=== PATIENT | male | born 1980 | race Caucasian/White ===

== ENCOUNTER 2017-07-14 23:41 | Emergency (ER) | payer SELFPAY ==
[2017-07-15 01:34] VITALS: BMI 27.3
[2017-07-15 01:43] VITALS: RESP 18; TEMP 97.7; O2SAT 100
[2017-07-15] MEDS ORDERED: Sodium Chloride 0.9% 2,000 ML IV STA (01:52)
[2017-07-15] MEDS ORDERED: HYDROmorphone 0.5 mg/0.5 ml ISec IVP STA (01:52)
--- NOTE | 2017-07-15 01:57 | ED PDOC ---
Arrival/HPI - General Chief Complaint: Abdominal Pain Time Seen by Provider: 07/15/17 01:48 Historian: Patient - History of Present Illness Narrative History of Present Illness (Text): 07/15/17 01:56 A 37 year old male presents to the emergency department complaining of epigastric abdominal pain. Patient notes pain radiates to the right side of his back. Reports family history of gallbladder stones. Patient denies any other complaints at this time. Symptom Onset: Sudden Symptom Course: Unchanged Activities at Onset: Rest Context: Home Past Medical History - Provider Review Nursing Documentation Reviewed: Yes - Psychiatric Hx Substance Use: No - Anesthesia Hx Anesthesia: No Hx Anesthesia Reactions: No Hx Malignant Hyperthermia: No Family/Social History - Physician Review Nursing Documentation Reviewed: Yes Family/Social History: No Known Family HX Smoking Status: Heavy Smoker > 10 Cigarettes Daily Hx Alcohol Use: Yes (weekends) Frequency of alcohol use: Socially Hx Substance Use: No Allergies/Home Meds Allergies/Adverse Reactions: Allergies No Known Allergies Allergy (Verified 07/15/17 01:34) Review of Systems - Physician Review All systems were reviewed & negative as marked: Yes - Review of Systems Constitutional: absent: Fevers Gastrointestinal: Abdominal Pain (epigastric abdominal pain, radiating to right side of back) Physical Exam Vital Signs Reviewed: Yes Vital Signs Temp Pulse Resp BP Pulse Ox 07/15/17 05:00 85 18 138/85 100 07/15/17 01:43 97.7 F 81 18 149/91 H 100 Temperature: Afebrile Blood Pressure: Hypertensive Pulse: Regular Respiratory Rate: Normal Appearance: Positive for: Well-Appearing, Non-Toxic, Comfortable Pain Distress: None Mental Status: Positive for: Alert and Oriented X 3 - Systems Exam Head: Present: Atraumatic, Normocephalic Pupils: Present: PERRL Extroacular Muscles: Present: EOMI Conjunctiva: Present: Normal Mouth: Present: Moist Mucous Membranes Neck: Present: Normal Range of Motion Respiratory/Chest: Present: Clear to Auscultation, Good Air Exchange. No: Respiratory Distress, Accessory Muscle Use Cardiovascular: Present: Regular Rate and Rhythm, Normal S1, S2. No: Murmurs Abdomen: Present: Tenderness (epigastric), Normal Bowel Sounds. No: Distention , Peritoneal Signs Back: Present: Normal Inspection Upper Extremity: Present: Normal Inspection. No: Cyanosis, Edema Lower Extremity: Present: Normal Inspection. No: Edema Neurological: Present: GCS=15, CN II-XII Intact, Speech Normal Skin: Present: Warm, Dry, Normal Color. No: Rashes Psychiatric: Present: Alert, Oriented x 3, Normal Insight, Normal Concentration Medical Decision Making ED Course and Treatment: 07/15/17 01:55 Impression: A 37 year old male with epigastric abdominal pain radiating to back, right side. Plan: -- US abdomen -- labs -- Dilaudid, IV fluids, Toradol, Zofran -- Reassess and disposition Progress Notes: US Abdomen Complete FINDINGS: Artifacts: Limited due to bowel gas shadowing. Limited due to shadowing from the ribs. Liver: The liver measures 17.7 cm. Echogenic heterogeneous fatty liver. Limited evaluation due to shadowing. There is hepatic pedal flow in the portal vein. Gallbladder: There are gallstones with 6-8 mm gallbladder wall thickening. Possible gallstone in the neck of the gallbladder. There was no right upper quadrant tenderness during the sonographic examination. Correlation with patient's pain medication status is recommended. Common bile duct: Prominent common bile duct measuring 6 mm for patient's stated age. No stones. Pancreas: The pancreas is not well-seen. Kidneys: The right kidney measures 10.6 x 4.8 x 5.6 cm. The left kidney measures 11.9 x 6.3 x 5.5 cm. No stones. No hydronephrosis. Spleen: The spleen measures 10.0 x 5.0 x 4.6 cm. Aorta: The aorta is not visualized due to bowel gas. Inferior vena cava: IVC is seen. IMPRESSION: 1. There are gallstones with 6-8 mm gallbladder wall thickening. Possible gallstone in the neck of the gallbladder. There was no right upper quadrant tenderness during the sonographic examination. Correlation with patient's pain medication status is recommended. Correlation with clinical data is recommended if acute on chronic cholecystitis is clinically suspected. Correlation with internal medicine evaluation and further workup or followup as recommended by patient's clinical data. Dictated and Authenticated by: Blanche Quintanilla MD 07/15/2017 4:23 AM Eastern Time ([place] & [place]) 07/15/17 05:59 Case discussed with surgical technology instructor and Dr. Xiong, general surgeon, who agree for patient to be admitted. - Lab Interpretations Lab Results: 07/15/17 02:00 07/15/17 02:00 Lab Results 07/15/17 02:00: Sodium 143, Potassium 4.3, Chloride 103, Carbon Dioxide 30, Anion Gap 15, BUN 16, Creatinine 0.8, Est GFR ( Amer) > 60, Est GFR (Non- Af Amer) > 60, Random Glucose 116 H, Calcium 9.8, Total Bilirubin 0.5, AST 32, ALT 41, Alkaline Phosphatase 52, Total Protein 7.8, Albumin 4.3, Globulin 3.5, Albumin/Globulin Ratio 1.2, Lipase 46 07/15/17 02:00: PT 11.0, INR 0.97 07/15/17 02:00: WBC 9.4, RBC 5.05, Hgb 15.6, Hct 46.2, MCV 91.5, MCH 30.9, MCHC 33.8, RDW 12.9, Plt Count 211, MPV 9.9, Gran % 68.4 H, Lymph % (Auto) 21.5 L, Rogers % (Auto) 7.6 H, Eos % (Auto) 2.2, Baso % (Auto) 0.3, Gran # 6.45, Lymph # 2.0, Rogers # 0.7 H, Eos # 0.2, Baso # 0.03 I have reviewed the lab results: Yes - RAD Interpretation Radiology Orders: 07/15/17 01:52 ABDOMEN COMPLETE [US] Stat - Medication Orders Current Medication Orders: Discontinued Medications Hydromorphone HCl (Dilaudid) 1 mg IVP STAT STA Stop: 07/15/17 01:53 Last Admin: 07/15/17 02:29 Dose: 1 mg MAR Pain Assessment Document 07/15/17 02:29 AD (Rec: 07/15/17 02:29 AD [id number] Pain Reassessment Is this a pain reassessment? No Presence of Pain Presence of Pain Yes Pain Scale Used Pain Scale Used Numeric Description Intensity of Pain at present 8 IVP Administration Document 07/15/17 02:29 AD (Rec: 07/15/17 02:29 AD [id number] Charges for Administration # of IVP Administrations 1 Sodium Chloride (Sodium Chloride 0.9%) 2,000 mls @ 999 mls/hr IV .Q2H1M STA Stop: 07/15/17 03:52 Last Admin: 07/15/17 02:29 Dose: 999 mls/hr eMAR Start Stop Document 07/15/17 02:29 AD (Rec: 07/15/17 02:29 AD [id number] Intravenous Solution Start Date 07/15/17 Start Time 02:29 Ketorolac Tromethamine (Toradol) 30 mg IVP STAT STA Stop: 07/15/17 01:53 Last Admin: 07/15/17 02:29 Dose: 30 mg MAR Pain Assessment Document 07/15/17 02:29 AD (Rec: 07/15/17 02:30 AD [id number] Pain Reassessment Is this a pain reassessment? No Presence of Pain Presence of Pain Yes Description Intensity of Pain at present 8 IVP Administration Document 07/15/17 02:29 AD (Rec: 07/15/17 02:30 AD [id number] Charges for Administration # of IVP Administrations 1 Ondansetron HCl (Zofran Inj) 4 mg IVP STAT STA Stop: 07/15/17 01:53 Last Admin: 07/15/17 02:30 Dose: 4 mg IVP Administration Document 07/15/17 02:30 AD (Rec: 07/15/17 02:30 AD [id number] Charges for Administration # of IVP Administrations 1 - Scribe Statement The provider has reviewed the documentation as recorded by the Bebetoibalexi Martines Provider Scribe Attestation: All medical record entries made by the Scribe were at my direction and personally dictated by me. I have reviewed the chart and agree that the record accurately reflects my personal performance of the history, physical exam, medical decision making, and the department course for this patient. I have also personally directed, reviewed, and agree with the discharge instructions and disposition. Disposition/Present on Arrival - Present on Arrival Any Indicators Present on Arrival: No History of DVT/PE: No History of Uncontrolled Diabetes: No Urinary Catheter: No History of Decub. Ulcer: No History Surgical Site Infection Following: None - Disposition Have Diagnosis and Disposition been Completed?: Yes Diagnosis: Biliary colic, Gallstone Disposition: HOME/ ROUTINE Disposition Time: 07:09 (cleared by surgery) Patient Plan: Discharge Condition: GOOD Discharge Instructions (ExitCare): Biliary Colic (ED), Gallstones (ED) Additional Instructions: Mr Costello- You have a gallstone, and until you get it removed you can not eat fat, for it will cause you to have pain. You must have everything fat free. Return to us if worse or problems. Follow up with your doctor for a referral to a surgeon. Gilberto- Dr. Al Vizcaino Use percocet for bad pain, take it only if you absolutely need it, it is addicting. Zofran is for nausea or vomiting Prescriptions: Ondansetron [Zofran Odt] 8 mg PO TID #30 tab.rapdis oxyCODONE/Acetaminophen [Percocet 5/325 mg Tab] 1 ea PO QID #20 tab MDD 6 Forms: MOGL (Chinese)
[2017-07-15 02:24] LABS: BASO # 0.03 K/mm3 (0.0-2.0); BASO % 0.3 % (0.0-3.0); EOS # 0.2 (0.0-0.7); EOS % 2.2 % (1.5-5.0); GRAN # 6.45 (1.4-6.5); GRAN % 68.4 % (50.0-68.0); HEMOGLOBIN 15.6 g/dL (14.0-18.0); LYMPH % 21.5 % (22.0-35.0); MEAN CELL VOLUME 91.5 fl (80.0-105.0); MEAN CORPUSCULAR HEMOGLOBIN 30.9 pg (25.0-35.0); MEAN CORPUSCULAR HGB CONC 33.8 g/dl (31.0-37.0); MEAN PLATELET VOLUME 9.9 fl (7.0-11.0); MONO # 0.7 (0.1-0.6); MONO % 7.6 % (1.0-6.0); RBC 5.05 10^6/uL (3.5-6.1); RED CELL DISTRIBUTION WIDTH 12.9 % (11.5-14.5); WHITE BLOOD COUNT 9.4 10^3/ul (4.5-11.0)
[2017-07-15 02:27] LABS: INR 0.97 (0.93-1.08)
[2017-07-15 02:42] LABS: ALB/GLOB RATIO 1.2 (1.1-1.8); ALBUMIN 4.3 g/dL (3.0-4.8); ALT/SGPT 41 U/L (7-56); AST/SGOT 32 U/L (17-59); BLOOD UREA NITROGEN 16 mg/dL (7-21); CALCIUM 9.8 mg/dL (8.4-10.5); GFR AFRICAN-AMERICAN > 60; GFR NON-AFRICAN AMERICAN > 60; LIPASE 46 U/L (23-300)
--- NOTE | 2017-07-15 04:24 | US ---
EXAM: US Abdomen Complete CLINICAL HISTORY: 37 years old, male; Pain; Abdominal pain; Generalized; Additional info: Biliary colic, R/O cholecystitis TECHNIQUE: Real-time ultrasound of the abdomen (complete) with image documentation. Real time cine loop images are submitted. COMPARISON: No relevant prior studies available. FINDINGS: Artifacts: Limited due to bowel gas shadowing. Limited due to shadowing from the ribs. Liver: The liver measures 17.7 cm. Echogenic heterogeneous fatty liver. Limited evaluation due to shadowing. There is hepatic pedal flow in the portal vein. Gallbladder: There are gallstones with 6-8 mm gallbladder wall thickening. Possible gallstone in the neck of the gallbladder. There was no right upper quadrant tenderness during the sonographic examination. Correlation with patient's pain medication status is recommended. Common bile duct: Prominent common bile duct measuring 6 mm for patient's stated age. No stones. Pancreas: The pancreas is not well-seen. Kidneys: The right kidney measures 10.6 x 4.8 x 5.6 cm. The left kidney measures 11.9 x 6.3 x 5.5 cm. No stones. No hydronephrosis. Spleen: The spleen measures 10.0 x 5.0 x 4.6 cm. Aorta: The aorta is not visualized due to bowel gas. Inferior vena cava: IVC is seen. IMPRESSION: 1. There are gallstones with 6-8 mm gallbladder wall thickening. Possible gallstone in the neck of the gallbladder. There was no right upper quadrant tenderness during the sonographic examination. Correlation with patient's pain medication status is recommended. Correlation with clinical data is recommended if acute on chronic cholecystitis is clinically suspected. Correlation with internal medicine evaluation and further workup or followup as recommended by patient's clinical data.
--- NOTE | 2017-07-15 05:32 | CP.PCM.CON ---
History of Present Illness - History of Present Illness History of Present Illness: Consult note General Surgery- Dr. Xiong 37M no significant pmhx presents to the ED with mid-epigastric pain that started shortly after eating oily food. pain migrated to RUQ then to his back. patient had previous episode like this one week ago which resolved on its own. Upon arrival to the ED (5hrs after initial onset of pain), pain and symptoms resolved. Patient had associated non-bloody, non-bilious vomiting x1. denies recent sick contacts or foreign travel. pt states he currently has an appetite. currently denies: fevers, chills, chest pain, shortness of breath, nausea, vomiting, diarrhea, head aches, numbness/tinging in extremities PMH: denies PSH: denies ALL: NKDA SocialHx: tobacco use smokes 10 cigs/day > 15 years, occasional EOTH, denies recreational drug use Familyhx: Mother and father had cholecystectomy's around age 40. Review of Systems - Review of Systems All systems: reviewed and no additional remarkable complaints except - Constitutional Constitutional: As Per HPI Past Patient History - Past Social History Smoking Status: Heavy Smoker > 10 Cigarettes Daily - PSYCHIATRIC Hx Substance Use: No - SURGICAL HISTORY Hx Surgeries: No - ANESTHESIA Hx Anesthesia: No Hx Anesthesia Reactions: No Hx Malignant Hyperthermia: No Meds Allergies/Adverse Reactions: Allergies Allergy/AdvReac Type Severity Reaction Status Date / Time No Known Allergies Allergy Verified 07/15/17 01:34 Physical Exam - Constitutional Appears: Non-toxic, No Acute Distress - Head Exam Head Exam: ATRAUMATIC - Eye Exam Eye Exam: EOMI. absent: Scleral icterus - Respiratory Exam Respiratory Exam: NORMAL BREATHING PATTERN. absent: Accessory Muscle Use, Respiratory Distress - Cardiovascular Exam Cardiovascular Exam: +S1, +S2. absent: Bradycardia, Tachycardia - GI/Abdominal Exam GI & Abdominal Exam: Soft. absent: Distended, Firm, Guarding, Rebound, Rigid, Tenderness Additional comments: soft, non-tender, non-distended. negative cornelius's sign. pt states belly size is normal - Extremities Exam Extremities exam: Positive for: normal inspection. Negative for: calf tenderness - Back Exam Back exam: absent: CVA tenderness (L), CVA tenderness (R) - Neurological Exam Neurological exam: Alert, Oriented x3 - Skin Skin Exam: Intact, Warm Results - Vital Signs Recent Vital Signs: Last Vital Signs Temp 97.7 F 07/15/17 01:43 Pulse 81 07/15/17 01:43 Resp 18 07/15/17 01:43 BP 149/91 H 07/15/17 01:43 Pulse Ox 100 07/15/17 01:43 - Labs Result Diagrams: 07/15/17 02:00 07/15/17 02:00 Labs: Laboratory Results - last 24 hr 07/15/17 07/15/17 07/15/17 02:00 02:00 02:00 WBC 9.4 RBC 5.05 Hgb 15.6 Hct 46.2 MCV 91.5 MCH 30.9 MCHC 33.8 RDW 12.9 Plt Count 211 MPV 9.9 Gran % 68.4 H Lymph % (Auto) 21.5 L Newton % (Auto) 7.6 H Eos % (Auto) 2.2 Baso % (Auto) 0.3 Gran # 6.45 Lymph # 2.0 Newton # 0.7 H Eos # 0.2 Baso # 0.03 PT 11.0 INR 0.97 Sodium 143 Potassium 4.3 Chloride 103 Carbon Dioxide 30 Anion Gap 15 BUN 16 Creatinine 0.8 Est GFR ( Amer) > 60 Est GFR (Non-Af Amer) > 60 Random Glucose 116 H Calcium 9.8 Total Bilirubin 0.5 AST 32 ALT 41 Alkaline Phosphatase 52 Total Protein 7.8 Albumin 4.3 Globulin 3.5 Albumin/Globulin Ratio 1.2 Lipase 46 Assessment & Plan - Assessment and Plan (Free Text) Assessment: 37M symptomatic cholelithiasis, resolved spontaneously after 4.5hrs after initial onset ABD exam benign Plan: - IVF - anti-emetic - serial abd exams - hold all pain meds for now - if pt continues to be pain free; PO clear liquid trial - if tolerates can follow up as outpatient for elective cholecystectomy - further recs per Dr. Xiong surgical attending Yadiel Ames PGY1
[2017-07-15 06:01] VITALS: BP 138/85; PULSE 85
== END 2017-07-15 08:01 | disposition home or self-care (01) ==
LOC: ED 23:41
DX: K80.70 Calculus of gallbladder and bile duct without cholecystitis without obstruction (principal); F17.210 Nicotine dependence, cigarettes, uncomplicated
CPT/HCPCS: 76700; 80053; 83690; 85025; 85610; 96374; 96375; 99284; J1170; J1885; J2405; J7040